=== PATIENT | female | born 1955 | race Caucasian/White ===

== ENCOUNTER → 2021-06-02 | Outpatient (CLI) | payer MEDICARE, OTHER | LOC: RAD 14:47 | DX: D49.2 Neoplasm of unspecified behavior of bone, soft tissue, and skin (principal) | CPT/HCPCS: 71046 ==

== ENCOUNTER → 2021-06-11 | Outpatient (CLI) | payer MEDICARE, OTHER ==
[~2021-06-11] MED LIST: IOPAMIDOL 370 MG/ML 200 ML INFUS..BTL INJ ONE; SODIUM CHLORIDE 0.9% 500ML 500 ML ONE; SODIUM CHLORIDE 0.9% 50ML 50 ML ONE
[2021-06-11 16:35] LABS: CREATININE, SERUM 1.01 mg/dL (0.57-1.11)
== END ==
LOC: CT 15:43
DX: R91.8 Other nonspecific abnormal finding of lung field (principal); K44.9 Diaphragmatic hernia without obstruction or gangrene
CPT/HCPCS: 36415; 71260; 82565; 84520; 96360; J7040; Q9967

== ENCOUNTER → 2022-01-01 | Outpatient (CLI) | payer MEDICARE, OTHER | LOC: CT 09:26 | PROVIDERS: ATTEND Internal Medicine Pulmonary Disease | DX: R91.1 Solitary pulmonary nodule (principal) | CPT/HCPCS: 71250 ==

== ENCOUNTER 2023-06-06 11:35 | Emergency (ER) | payer MEDICARE, OTHER ==
[~2023-06-06] VITALS: Ht 165.1 cm; Wt 72.6 kg
[2023-06-06 12:22] VITALS: O2SAT 99
== END 2023-06-06 14:19 | disposition home or self-care (01) ==
LOC: ER 11:53
DX: S63.8X2A Sprain of other part of left wrist and hand, initial encounter (principal); X50.0XXA Overexertion from strenuous movement or load, initial encounter; Y92.89 Other specified places as the place of occurrence of the external cause; I10 Essential (primary) hypertension; E78.5 Hyperlipidemia, unspecified; E03.9 Hypothyroidism, unspecified; M10.9 Gout, unspecified
CPT/HCPCS: 99283

== ENCOUNTER → 2023-12-29 | Outpatient (REF) | payer MEDICARE, OTHER | LOC: CT 13:11 | PROVIDERS: ATTEND Internal Medicine Pulmonary Disease | DX: R22.2 Localized swelling, mass and lump, trunk (principal) | CPT/HCPCS: 71250 ==

== ENCOUNTER → 2025-01-25 | Outpatient (REF) | payer MEDICARE, OTHER | LOC: CT 11:55 | PROVIDERS: ATTEND Internal Medicine Pulmonary Disease | DX: R91.1 Solitary pulmonary nodule (principal) | CPT/HCPCS: 71250 ==